=== PATIENT | male | born 1990 | race Two or more races ===

== ENCOUNTER 2021-08-14 01:13 | Emergency (ER) | payer OTHER ==
[~2021-08-14] VITALS: Ht 177.8 cm; Wt 72.6 kg
[2021-08-14 02:12] LABS: *BILIRUBIN,URIN NEGATIVE (NEGATIVE); *BLOOD, URINE 2+ (NEGATIVE); *CLARITY,URINE CLEAR (CLEAR); *COLOR,URINE YELLOW (YELLOW); *KETONES,URINE NEGATIVE (NEGATIVE); *UROBILINOGEN,URINE 0.2 E.U./dl (NORMAL); LEUKOCYTE ESTERASE ,URINE NEGATIVE (NEGATIVE); NITRITE, URINE NEGATIVE (NEGATIVE); UGLUCOSE NEGATIVE (NEGATIVE)
[2021-08-14 02:19] LABS: BACTERIA,URINE NONE SEEN /HPF (NONE SEEN); MUCUS,URINE MODERATE /LPF (0-FEW); SQUAMOUS EPITHELIAL CELL,UR NONE SEEN /HPF (NONE SEEN); WBC,URINE 0-3 /HPF (0-3)
[2021-08-14] MEDS: KETOROLAC TROMETHAMINE 30 MG INJ IM ONE (02:44)
--- NOTE | 2021-08-14 02:45 | NUR ---
Patient discharged to home in stable condition. Written and verbal after care instructions given. Patient verbalizes understanding of instructions. Stressed follow up or return to ER for worsening s/s.
[2021-08-14 02:46] VITALS: BP 134/83
[2021-08-14] MEDS ORDERED: KETOROLAC TROMETHAMINE 30 MG INJ ONE (02:47)
== END 2021-08-14 02:46 | disposition home or self-care (01) ==
LOC: ER 01:21
DX: R31.29 Other microscopic hematuria (principal); R10.31 Right lower quadrant pain; Z84.1 Family history of disorders of kidney and ureter
CPT/HCPCS: 81001; 96372; 99283; J1885; A4663

== ENCOUNTER 2022-07-21 16:33 | Emergency (ER) | payer OTHER ==
[~2022-07-21] VITALS: Ht 175.3 cm; Wt 72.6 kg
[2022-07-21] MEDS ORDERED: TDAP DIPH,PERTUSS,TET VAC/PF 0.5 ML DISP.SYRIN IM ONE ×2 (17:00→17:03)
--- NOTE | 2022-07-21 17:00 | NUR ---
Pt arrived with c/o laceration on the R index. No profuse bleeding noted. Pain 2/10 per pt. Pt stated that he accidentally cut himself while slicing. Dr. Haq in room for [facility].
--- NOTE | 2022-07-21 17:12 | NUR ---
Irrigated with NS and clean the blood clots on the site. ERMD placed dermabond on the site. Pt received TDAP on the RD as per MD's order.
[2022-07-21 17:29] VITALS: BP 124/75
== END 2022-07-21 17:28 | disposition home or self-care (01) ==
LOC: ER 16:34
DX: S61.210A Laceration without foreign body of right index finger without damage to nail, initial encounter (principal); W26.0XXA Contact with knife, initial encounter; Y92.039 Unspecified place in apartment as the place of occurrence of the external cause
CPT/HCPCS: 90715; A4663

== ENCOUNTER 2023-11-30 03:19 | Emergency (ER) | payer OTHER ==
[~2023-11-30] VITALS: Ht 172.7 cm; Wt 72.6 kg
[2023-11-30] MEDS ORDERED: METOCLOPRAMIDE HCL 10 MG/2 ML VIAL ONE (03:24)
[2023-11-30] MEDS: METOCLOPRAMIDE HCL 10 MG/2 ML VIAL IM ONE (03:27)
[2023-11-30] MEDS ORDERED: ONDANSETRON 4 MG/2 ML VIAL ONE (03:35)
[2023-11-30] MEDS ORDERED: diphenhydrAMINE 50 MG/1 ML VIAL ONE (03:35)
[2023-11-30] MEDS ORDERED: HYDROMORPHONE 1 MG/1 ML DISP.SYRIN ONE (03:36)
[2023-11-30 03:49] LABS: BASOPHILS # (AUTO) 0.1 K/UL (0.0-0.2); BASOPHILS % (AUTO) 0.7 % (0.0-2.0); EOSINOPHILS # (AUTO) 0.1 K/uL (0.0-0.7); EOSINOPHILS % (AUTO) 0.5 % (0.0-7.0); HEMATOCRIT 44.5 % (36.7-47.1); HEMOGLOBIN 15.3 g/dL (12.5-16.3); LYMPHOCYTES # (AUTO) 2.1 K/uL (0.8-4.8); LYMPHOCYTES % (AUTO) 12.8 % (20.5-51.5); MEAN CORPUSCULAR HEMOGLOBIN 30.3 uug (23.8-33.4); MEAN CORPUSCULAR HGB CONC 34 g/dL (32.5-36.3); MEAN CORPUSCULAR VOLUME 88.3 fL (73.0-96.2); MONOCYTES # (AUTO) 0.6 K/uL (0.1-1.30); MONOCYTES % (AUTO) 3.9 % (0.0-11.0); NEUTROPHILS # (AUTO) 13.4 K/uL (1.8-8.9); NEUTROPHILS % (AUTO) 82.1 % (38.5-71.5); PLATELET COUNT (AUTO) 233 K/uL (152-348); RED BLOOD CELL COUNT(AUTO) 5.04 MIL/uL (4.06-5.63); RED CELL DISTRIBUTION WIDTH 13.8 % (12.1-16.2); WHITE BLOOD COUNT (AUTO) 16.3 K/uL (3.6-10.2)
[2023-11-30] MEDS: diphenhydrAMINE 50 MG/1 ML VIAL IV ONE (03:51)
[2023-11-30] MEDS: ONDANSETRON 4 MG/2 ML VIAL IV ONE (03:52)
[2023-11-30] MEDS: HYDROMORPHONE 1 MG/1 ML DISP.SYRIN IV ONE (03:52)
[2023-11-30] MEDS: IV NORMAL SALINE 1000 ML BAG IV ONE (03:52)
[2023-11-30 04:36] LABS: CALCIUM 9.5 mg/dL (8.5-10.1); CREATININE 0.9 mg/dL (0.6-1.3); POTASSIUM 3.8 mmol/L (3.5-5.1)
[2023-11-30 04:42] LABS: ALBUMIN 4.5 g/dL (3.4-5.0); BILIRUBIN,DIRECT 0.1 mg/dL (0.0-0.2); BILIRUBIN,TOTAL 0.6 mg/dL (0.2-1.0); TOTAL PROTEIN, SERUM 8.5 g/dL (6.4-8.2)
[2023-11-30 05:15] LABS: DIFFERENTIAL COMMENT 1
[2023-11-30] MEDS ORDERED: HYDR-3980 PO (05:32)
[2023-11-30] MEDS ORDERED: ONDA4TAB11 PO (05:32)
[2023-11-30 05:45] VITALS: BP 126/74; O2SAT 99
== END 2023-11-30 05:46 | disposition home or self-care (01) ==
LOC: ER 03:26
DX: R10.10 Upper abdominal pain, unspecified (principal); R11.2 Nausea with vomiting, unspecified; Z79.899 Other long term (current) drug therapy
CPT/HCPCS: 99284; 96374; 96375; 96361; 80076; 80048; 83690; 85025; 36415; 96372; J1200; J2765; J2405; J1170; J7040; A4606; A4663